=== PATIENT | male | born 1950 | race Caucasian/White ===

== ENCOUNTER 2019-12-26 15:17 | Outpatient (CLI) | payer MEDICARE, OTHER, SELFPAY ==
--- NOTE | ~2019-12-26 | US_ITS ---
US scrotum doppler INDICATION: Testicular swelling TECHNIQUE: Testicular sonogram utilizing grayscale and color Doppler FINDINGS: The testes are normal in size and appearance. No focal lesions are seen. The right testes measures 3.8 x 3 x 2.6 cm centimeters, and the left testis measures 4.3 x 2.7 x 2.5 cm cm. There is n ormal vascular flow to both testes. There are moderate bilateral hydroceles. There are bilateral varicoceles. IMPRESSION: 1. Bilateral varicoceles. 2: Moderate bilateral hydroceles. Reviewed, dictated and finalized at location A.
== END 2019-12-26 15:18 | disposition home or self-care (01) ==
PROVIDERS: PCP Internal Medicine; Visit Provider Internal Medicine
DX: R36.1 Hematospermia (principal); N43.3 Hydrocele, unspecified; I86.1 Scrotal varices; N50.89 Other specified disorders of the male genital organs
CPT/HCPCS: 76870; 93976

== ENCOUNTER 2020-04-11 10:59 | Outpatient (NON) | payer MEDICARE, OTHER, SELFPAY ==
[2020-04-12 20:05] LABS: SARS-CoV-2 RNA PCR Negative
== END 2020-04-11 11:00 ==
LOC: ANHCOVIDDT 11:03
PROVIDERS: Visit Provider Internal Medicine
DX: R68.89 Other general symptoms and signs (principal); Z20.828 Contact with and (suspected) exposure to other viral communicable diseases
CPT/HCPCS: 87635; C9803; U0003

== ENCOUNTER 2020-06-15 07:48 | Outpatient (CLI) | payer MEDICARE, OTHER, SELFPAY ==
--- NOTE | 2020-06-15 09:01 | ECG_ITS ---
Measurements Intervals Roby Rate: 45 P: 17 WA: 199 QRS: -10 QRSD: 103 T: 5 QT: 451 QTc: 392 Interpretive Statements SINUS BRADYCARDIA DELAYED PRECORDIAL R/S TRANSITION VOLTAGE CRITERIA FOR LVH BORDERLINE T WAVE ABNORMALITY- INFERIOR LEADS BASELINE ARTIFACT- I, II, III, AVR, AVL, AVF ABNORMAL ECG Electronically Signed On 06-15-2020 9:26:14 COMMUNITY SERVICES COORDINATOR by Hugo Mora D.O.
[2020-06-15 09:31] LABS: Basophils Absolute Auto 0.1 K/mm3 (0.0-0.1); Basophils Percent Auto 1.2 % (0.2-1.2); Eosinophils Absolute Auto 0.4 K/mm3 (0-0.3); Eosinophils Percent Auto 6.7 % (0-4.4); Hematocrit 45.1 % (42.0-52.0); Hemoglobin 14.8 g/dL (14.0-18.0); Immature Granulocyte Absolute 0.02 K/mm3 (0.00-0.031); Immature Granulocyte Percent A 0.4 % (0-0.5); Lymphocytes Absolute Auto 1.68 K/mm3 (0.9-3.2); Lymphocytes Percent Auto 29.7 % (18.3-44.2); Mean Corpuscular HGB Conc 32.8 g/dl (32-36); Mean Corpuscular Hemoglobin 28.2 pg (26-34); Mean Corpuscular Volume 85.9 fl (80-100); Mean Platelet Volume 10.2 fl (7.4-10.4); Monocytes Absolute Auto 0.4 K/mm3 (0.1-0.6); Monocytes Percent Auto 7.4 % (2.6-8.5); Neutrophils Absolute Auto 3.1 K/mm3 (1.3-6.7); Neutrophils Percent Auto 54.6 % (45.5-73.1); Platelet Count Result 164 k/mm3 (150-375); Red Blood Count 5.25 M/mm3 (4.6-6.20); Red Cell Distribution Width 13.2 % (11.5-14.5); White Blood Count 5.7 K/mm3 (4.5-10.0)
[2020-06-15 09:33] LABS: Add Urine Microscopic? NO; Appearance Urine Clear (Clear); Bilirubin Urine Negative (Negative); Blood Urine Negative (Negative); Color Urine Straw (Yellow); Glucose Urine UA Negative (Negative); Ketones Urine Negative (Negative); Leukocyte Esterase Ur Negative LEU/UL (Negative); Nitrate Urine Negative (Negative); Protein Urine Negative (Negative); Urobilinogen Urine Negative mg/dL (<2.0)
[2020-06-15 09:44] LABS: Albumin Level 3.9 g/dL (3.5-5.1); Anion Gap 7 mmol/L (8-16); Blood Urea Nitrogen 16 mg/dL (9-20); Calcium 8.9 mg/dL (8.4-10.2); Carbon Dioxide 29 mmol/L (22-30); Chloride 106 mmol/L (98-107); Estimated Glomerular Filt Rate > 60; Glucose 116 mg/dL (75-110); Potassium 3.8 mmol/L (3.4-5.0); Sodium 142 mmol/L (137-145)
[2020-06-15 09:45] LABS: Hemoglobin A1C 5.9 % (<5.7); Prothrombin Time 13.4 Seconds (11.1-14.7)
[2020-06-15 09:46] LABS: Partial Thromboplastin Time 26.4 SECONDS (22.3-36.8); Urine Cotinine NEGATIVE
== END 2020-06-15 07:49 | disposition home or self-care (01) ==
LOC: ANHSURGERY 07:50
PROVIDERS: Family Provider Internal Medicine; PCP Internal Medicine; Visit Provider Orthopaedic Surgery
DX: M17.12 Unilateral primary osteoarthritis, left knee (principal); Z01.818 Encounter for other preprocedural examination; R94.31 Abnormal electrocardiogram [ECG] [EKG]
CPT/HCPCS: 80048; 80307; 81003; 82040; 83036; 85025; 85610; 85730; 86850; 86900; 86901; 87081; 93005

== ENCOUNTER → 2020-06-23 05:55 | Outpatient (CLI) | payer MEDICARE, OTHER, SELFPAY ==
[2020-06-23 19:10] LABS: SARS-CoV-2 RNA PCR Negative
== END ==
PROVIDERS: Family Provider Internal Medicine; PCP Internal Medicine; Visit Provider Orthopaedic Surgery
DX: Z01.812 Encounter for preprocedural laboratory examination (principal); Z20.822 Contact with and (suspected) exposure to COVID-19
CPT/HCPCS: C9803; U0003; U0005

== ENCOUNTER 2020-06-27 01:09 | Day surgery (SDC) | payer MEDICARE, OTHER, SELFPAY ==
[2020-06-15 07:58] VITALS: BMI 35.2
[2020-06-15 08:52] VITALS: BP 169/83; PULSE 53; RESP 16; TEMP 37.2; O2SAT 99
--- NOTE | 2020-06-26 10:57 | WPDANESEPPF ---
Anes - Initial Pre Proc Eval Procedure: Operation Date: 06/27/20 10:30 Proposed Procedures p Left Total Knee Arthroplasty - Rashid Vincent MD Date/Time: 06/26/20 10:57 Surgeon: Rashid Vincent MD Pre Op Diagnosis: Left Knee DJD Patient Data Age: 69 Gender: M Height: 1.73 m Weight: 104.9 kg Last Vital Signs Temp 37.2 C 06/15/20 08:52 Pulse 53 L 06/15/20 08:52 Resp 16 06/15/20 08:52 BP 169/83 H 06/15/20 08:52 Pulse Ox 99 06/15/20 08:52 Allergies Allergy/AdvReac Type Severity Reaction Status Date / Time metaxalone Allergy Intermediate Nausea Verified 06/20/20 10:45 tramadol Allergy Intermediate Nausea Verified 06/20/20 10:45 Home Medications Medication Instructions Recorded Confirmed Type atorvastatin 20 mg tablet 20 mg PO DAILY 90 Days #90 tablet 11/16/19 06/27/20 Rx esomeprazole magnesium 40 mg 40 mg PO BID cap 11/16/19 06/27/20 History capsule,delayed release famotidine 40 mg tablet 40 mg PO HS tablet 11/16/19 06/27/20 History chlorhexidine gluconate 4 % 1 applic TOPICAL ONCE #237 ml 05/29/20 06/27/20 Rx topical liquid nebivolol [Bystolic] 10 mg PO QAM 06/15/20 06/27/20 History Patient hx anesthesia problems: none Family hx anesthesia problems: none PMFSH Past Medical History Medical History Whitt's esophagus with high grade dysplasia Chronic left shoulder pain Chronic pain of left knee Decreased mobility Hematospermia Hypertensive heart disease without heart failure (06/22/18) Joint locking Left knee DJD Mixed hyperlipidemia Muscle spasm Obstructive sleep apnea Primary osteoarthritis of left knee Swelling Surgical History Surgical History H/O knee surgery Family History Family History Father Family history of lung cancer Mother Family history of malignant neoplasm of breast in first degree relative Other Family history of malignant neoplasm of male breast Social History Social History Smoking packs per day: 1 Smoking cigarettes per day: 20.0 Years smoked: 4 Smoking pack-years: 4.00 Smoking status: Former smoker Tobacco type: cigarettes Smoking end date: 05/04/75 Additional smoking assessment comments: DENIES ANY FORM OF TOBACCO USE Alcohol intake: never Living arrangements: with family Spiritual care concerns: No Anes - Eval Final PreProcedure Day of Procedure 06/26/20 10:57 Patient weight: obese Heart: regular rate and rhythm Lungs: clear to auscultation and normal air movement Airway: Mallampati scale class II Neurological: alert and oriented Last oral intake: >/= 8 hours ASA classification: III Emergent: no Anesthetic plan: proceed Anesthesia type and monitoring: general LMA Informed Consent: The patient's anesthetic plan and its attendant risks and benefits were discussed with the patient/family/POA. Questions were solicited and answers provided to the satisfaction of the patient/family/POA.
--- NOTE | 2020-06-26 10:58 | WPDANESPNB ---
Anes - Peripheral Nerve Block Date/Time: 06/26/20 10:58 I have discussed with the patient/family/POA the placement of a peripheral nerve block for post-operative pain management, including associated risks, benefits, complications, and side effects. Alternative methods of post-operative analgesia were detailed. Questions were solicited and answers provided to the satisfaction of the patient/family/POA. Time-Out: A pre-procedural Time-Out was completed immediately before starting the procedure and confirmed: Patient Identification, Site, Procedure, Patient Position and the Availability of Requisite Equipment. Clinical Indications: Acute post-operative pain management requested by the operative surgeon. Nerve Block Insertion Note Anes-nerve block: adductor canal left Patient position: supine Skin prep: chlorhexidine Needle: 22 gauge, stimulating, insulated echogenic needle. Needle length: 80 mm Technique: ultrasound Injectate: bupivacaine 0.5% with epi 5 mcg/ml (30cc - no epi) Observations: tolerated well Complications: none Procedure start time:: 1052 Procedure end time:: 105
[2020-06-27] VITALS (11 sets, daily range): BP systolic 120–175; BP diastolic 61–101; PULSE 51–80; RESP 10–20; TEMP 35.8–37.1; O2SAT 92–100
--- NOTE | ~2020-06-27 | XR_ITS ---
. EXAMINATION: XR knee LT 2V DATE: 06/27/2020 14:16 INDICATION: Postoperative evaluation following left total knee arthroplasty. TECHNIQUE: Anteroposterior and lateral views of the left knee were obtained. COMPARISON: None. FINDINGS: Left total knee arthroplasty without patellar resurfacing appears well seated and in near anatomic al ignment. No fractures identified. Skin samm and expected postoperative subcutaneous, intramedull unique and intra-articular gas. IMPRESSION: 1. Left total knee arthroplasty, negative for postoperative purposes. Reviewed, dictated and finalized at location A. SANITARIAN
--- NOTE | 2020-06-27 07:24 | WPDHPUPDATE1 ---
History and Physical Update Update Date/Time: 06/27/20 07:24 History and Physical has been reviewed, including an updated exam of the patient. There are NO changes in the patient's condition. Risks, benefits, and alternatives have been discussed and questions answered. Patient agrees to proceed with procedure.
[2020-06-27] MEDS: ACETAMINOPHEN 500 MG TABLET 1000 MG PO (08:58)
[2020-06-27] MEDS: LACTATED RINGERS 1,000 ML 30 ML IV CONT ×2 (09:23→14:01)
[2020-06-27] MEDS: TRANEXAMIC ACID 1,000MG/ISO100 1,000 MG/100 ML BAG 200 MG IVPB (09:57)
[2020-06-27] MEDS: ceFAZolin 2 GM/D5W 50 ML 2 GM/50 ML BAG IVPB ×2 (11:10→18:15)
[2020-06-27] MEDS: GENTAMICIN BONE CEMENT REFOBACIN 1 EACH TOPICAL (12:45)
--- NOTE | 2020-06-27 14:03 | PM.PROC ---
Procedure Note - Detailed Date of procedure: 06/27/20 Pre-op diagnosis: Left Knee DJD Post-op diagnosis: same Procedure performed: L TKA Description of procedure: THE LEFT KNEE WAS PREPPED AND DRAPED IN THE STERILE FASHION. A MIDLINE SKIN INCISION WAS MADE. A MEDIAL PARAPATELLAR ARTHROTOMY WAS MADE. THE PATELLA WAS EVERTED. THERE WAS TRICOMPARTMENT DJD. THERE WAS MINIMAL PATELLA DJD. AN INTRAMEDULLARY REILLY WAS PLACED IN THE FEMUR. A DISTAL FEMORAL CUT WAS MADE IN 5 DEGREES OF VALGUS REMOVING APPROXIMATELY 9 MM OF BONE FROM THE DISTAL FEMUR. THE FEMUR WAS SIZED TO 67.7. A 67.5 FEMORAL CUTTING BLOCK WAS PLACED IN 3 DEGREES OF EXTERNAL ROTATION AND IN ALIGNMENT WITH TOMA'S LINE AND THE TRANSEPICONDYLAR AXIS. ANTERIOR POSTERIOR AND CHAMFER CUTS WERE MADE. THE CUTS WERE EXCELLENT. NEXT AN INTRAMEDULLARY CUTTING GUIDE WAS PLACED IN THE TIBIA. A TRANS TIBIAL CUT WAS MADE ALONG THE LONG AXIS OF THE TIBIA. APPROXIMATELY 10 MM OF BONE WAS REMOVED FROM THE HIGH SIDE OF THE TIBIA. THE TIBIA WAS THEN PLANED TO A SMOOTH SURFACE. POSTERIOR FEMORAL OSTEOPHYTES WERE REMOVED FROM THE FEMORAL CONDYLES. A 79 TIBIAL TRIAL WAS PLACED IN ALIGNMENT WITH THE 1/3 MEDIAL ASPECT OF THE TIBIAL TUBERCLE. THEN A 67.5 FEMORAL TRIAL COMPONENT WAS PLACED. BOTH HAD EXCELLENT FITS. EVENTUALLY A 10 MM POLYETHYLENE TRIAL COMPONENT WAS PLACED. THE KNEE WAS TAKEN THROUGH A RANGE OF MOTION. THE KNEE CAME OUT TO FULL EXTENSION. THERE WAS NO ABNORMAL TILT TO THE PATELLA. THERE WAS GOOD A/P AND VARUS/VALGUS STABILITY. THERE WAS NO EXCESSIVE ROLL BACK WITH FLEXION. THE TRIAL COMPONENTS WERE REMOVED. THEN A 67.5 FEMORAL COMPONENT AND 79 TIBIAL COMPONENT WITH A 10 CR POLYETHYLENE COMPONENT WERE CEMENTED INTO PLACE. ONCE THE CEMENT WAS HARD THE KNEE WAS TAKEN THROUGH A ROM AGAIN AND FOUND TO BE STABLE WITH NO PATELLA TILT NO EXCESSIVE ROLL BACK WITH FLEXION AND GOOD STABILITY WITH COMPLETE AND FULL EXTENSION. THE KNEE WAS IRRIGATED WITH STERILE BETADINE AND WATER FOR ABOUT 3 MINUTES. THE BLEEDERS WERE CAUTERIZED. THE ARTHROTOMY WAS REPAIRED WITH NUMBER 1 VICRYL. THE SUB CUTANEOUS LAYER WITH 2-0 VICRYL AND THE SKIN WITH FADUMO. THE WOUND WAS WASHED AND A STERILE DRESSING WAS APPLIED. PATIENT WAS EXTUBATED. Anesthesia: GETA Surgeon: Rashid Vincent MD Estimated blood loss (mL): 100 Complications: No immediate complications Condition: stable Disposition: PACU
[2020-06-27] MEDS: fentaNYL CITRATE INJ (*CRX) 100 MCG/2 ML VIAL 25 MCG IV PUSH ×4 (14:21→14:51)
--- NOTE | 2020-06-27 15:05 | SUR.PHASEI ---
[id number] sbar faxed floor notified
--- NOTE | 2020-06-27 16:26 | ADMGEN ---
This patient, Miguelito Rosales, was admitted to Medical Room 245-. Patient/family oriented to hospital policies and general routines including ID bracelet, bed and alarms, visiting hours, pain management, procedures, bathroom and other care routines, personal items, smoking policy, room service/diet, and visiting hours. Information on how to activate the Rapid Response Team has been discussed. Patient/Family are encouraged to report perceived risks to care and to ask questions if they do not understand what they are told or what they should do.
[2020-06-27] MEDS: CELECOXIB 200 MG CAPSULE PO (18:15)
[2020-06-27] MEDS: DOCUSATE SODIUM 100 MG CAPSULE PO (18:15)
[2020-06-27] MEDS: PANTOPRAZOLE 40 MG TABLET PO (18:15)
[2020-06-27] MEDS: FAMOTIDINE 20 MG TABLET 40 MG PO (21:24)
[2020-06-27] MEDS: oxyCODONE/ACETAMINOPHEN (*CRX) 5-325 MG TABLET 1 TABLET PO (21:24)
[2020-06-28 01:08] VITALS: BP 126/61; PULSE 70; RESP 16; TEMP 36.8; O2SAT 95
[2020-06-28] MEDS: ceFAZolin 2 GM/D5W 50 ML 2 GM/50 ML BAG IVPB ×2 (03:31→11:18)
[2020-06-28 05:03] VITALS: BP 123/74; PULSE 57; RESP 16; TEMP 36.6; O2SAT 97
[2020-06-28 05:26] LABS: Basophils Percent Auto 0.2 % (0.2-1.2); Eosinophils Percent Auto 0.1 % (0-4.4); Hematocrit 36.5 % (42.0-52.0); Hemoglobin 12.1 g/dL (14.0-18.0); Immature Granulocyte Absolute 0.04 K/mm3 (0.00-0.031); Immature Granulocyte Percent A 0.4 % (0-0.5); Lymphocytes Percent Auto 16.6 % (18.3-44.2); Mean Corpuscular HGB Conc 33.2 g/dl (32-36); Mean Corpuscular Hemoglobin 28.5 pg (26-34); Mean Corpuscular Volume 85.9 fl (80-100); Mean Platelet Volume 10.3 fl (7.4-10.4); Monocytes Absolute Auto 0.9 K/mm3 (0.1-0.6); Neutrophils Absolute Auto 8.1 K/mm3 (1.3-6.7); Neutrophils Percent Auto 74.7 % (45.5-73.1); Platelet Count Result 147 k/mm3 (150-375); Red Blood Count 4.25 M/mm3 (4.6-6.20); Red Cell Distribution Width 13.4 % (11.5-14.5); White Blood Count 10.8 K/mm3 (4.5-10.0)
[2020-06-28 05:47] LABS: Anion Gap 5 mmol/L (8-16); Blood Urea Nitrogen 20 mg/dL (9-20); Calcium 7.9 mg/dL (8.4-10.2); Carbon Dioxide 28 mmol/L (22-30); Chloride 106 mmol/L (98-107); Estimated CRCL calculation 71 ml/min; Estimated Glomerular Filt Rate > 60; Glucose 121 mg/dL (75-110); Potassium 3.8 mmol/L (3.4-5.0); Sodium 139 mmol/L (137-145)
[2020-06-28] MEDS: DOCUSATE SODIUM 100 MG CAPSULE PO (08:15)
[2020-06-28 08:16] VITALS: PULSE 62
[2020-06-28] MEDS: PANTOPRAZOLE 40 MG TABLET PO (08:16)
[2020-06-28] MEDS: ASPIRIN 325 MG ENTERIC TABLET 650 MG PO (08:16)
[2020-06-28] MEDS: ATORVASTATIN 20 MG TABLET PO (08:16)
[2020-06-28] MEDS: NEBIVOLOL HCL 5 MG TABLET 10 MG PO (08:16)
[2020-06-28] MEDS: CELECOXIB 200 MG CAPSULE PO (08:17)
[2020-06-28 08:23] VITALS: BP 134/69; PULSE 62; RESP 18; TEMP 36.2; O2SAT 98
--- NOTE | 2020-06-28 08:57 | PM.PNORT ---
Progress Note: A&P Assessment and Plan (1) S/P total knee replacement: Qualifiers: Laterality: left Qualified Code(s): Z96.652 - Presence of left artificial knee joint Code(s): Z96.659 - Presence of unspecified artificial knee joint Status: Acute Assessment and Plan: POD #1: Left TKA Continue PT/OT. WBAT LLE. Walker. Ice left knee. SCDs. Incentive spriometry. Educate patient on ice machine use. Dressing to be changed prior to discharge. Continue pain control. Bowel regimen. Aspirin for DVT prophylaxis. Dispo: Home with Home Health today Subjective Subjective Date/Time Seen: 06/28/20 08:57 Post Op day: 1 Principal diagnosis: Left Knee DJD Interval history: Left TKA POD #1 No new complaints. Working well with PT/OT. Ready for discharge home. Review of Systems Review of Systems: All systems reviewed & are unremarkable except as noted in HPI and below Constitutional: Constitutional: Denies fever(s) and Denies headache(s) ENT: Denies headache(s) Cardiovascular: Cardiovascular: Denies chest pain, Denies diaphoresis, Denies palpitations and Denies dyspnea Respiratory: Respiratory: Denies dyspnea Gastrointestinal: Gastrointestinal: Denies abdominal pain, Denies constipation, Denies nausea and Denies vomiting Genitourinary: Genitourinary: Denies dysuria and Reports nocturia Musculoskeletal: Musculoskeletal: Reports arthralgias (Left Knee ), Reports joint swelling (Left Knee ) and Reports limited range of motion (ROM limited due to recent surgical intervention LEFT Knee ) Neurologic: Denies headache(s) Endocrine: Endocrine: Denies palpitations Exam Const: General: comfortable and no acute distress Resp: Effort & Inspection: normal respiratory effort Cardio: Rate: regular rate Rhythm: regular rhythm GI: GI Palp: Yes Soft to palpation, No Tenderness to palpation present (GI) and No Guarding due to palpation present (GI) Skin: Wounds: wounds noted Other: Incision c/d/i. No surrounding redness/warmth. No hematoma. Mild ecchymosis. No wound dehiscence Neuro: Cognition (Neuro): normal cognition Other: NV intact aside from block. Moves toes. Sensation intact to light touch. +ankle dorsiflexion/plantarflexion. Extrem: Right upper extremity: normal to inspection, full ROM and normal capillary refill Left upper extremity: normal to inspection, full ROM and normal capillary refill Right lower extremity: normal to inspection, full ROM (ROM limited due to recent surgical intervention ) and knee (previous right TKA incision well-healed ) Details: normal ROM; no tenderness and no swelling Left lower extremity: normal to inspection, normal capillary refill and knee Details: tenderness (diffuse ), swelling (moderate consistent to recent surgery ), abnormal ROM (limited due to recent surgery ) and ecchymosis (as expected with recent surgery. NO hematoma. ) Other: Incision left TKA dressing c/d/i. No hematoma. No signs of infection. No wound dehiscence. Psych: Mental Status: mental status grossly normal Objective Data Vital Signs Vital Signs: Vital Signs - 24 hr 06/27/20 09:28 06/27/20 14:05 06/27/20 14:20 Temperature 36.6 C 36.5 C Pulse Rate 51 L 80 60 Respiratory Rate 20 18 10 L Blood Pressure 164/85 H 151/101 H 170/87 H Pulse Oximetry 99 96 100 06/27/20 14:35 06/27/20 14:50 06/27/20 15:05 Temperature Pulse Rate 72 70 68 Respiratory Rate 16 15 10 L Blood Pressure 175/74 H 148/61 H 144/84 H Pulse Oximetry 94 95 06/27/20 15:38 06/27/20 16:00 06/27/20 16:25 Temperature 36.3 C L 36.0 C L 35.8 C L Pulse Rate 63 61 65 Respiratory Rate 16 18 16 Blood Pressure 167/79 H 153/90 H 152/87 H Pulse Oximetry 97 95 92 06/27/20 18:00 06/27/20 21:08 06/28/20 01:08 Temperature 36.6 C 37.1 C 36.8 C Pulse Rate 69 77 70 Respiratory Rate 16 16 16 Blood Pressure 120/87 169/93 H 126/61 Pulse Oximetry 96 94 95 06/28/20 05:03 06/28/20 08:16 06/28/20 08:23 Temp
--- NOTE | 2020-06-28 10:29 | PM.DS ---
DS: Admitting Diagnosis Admitting Diagnosis Admitting Diagnosis: Left Knee DJD DS: Discharge Diagnosis Discharge Diagnosis (1) S/P total knee replacement: Qualifiers: Laterality: left Qualified Code(s): Z96.652 - Presence of left artificial knee joint Code(s): Z96.659 - Presence of unspecified artificial knee joint Status: Acute Assessment and Plan: POD #1: Left TKA Continue PT/OT. WBAT LLE. Walker. Ice left knee. SCDs. Incentive spriometry. Educate patient on ice machine use. Dressing to be changed prior to discharge. Continue pain control. Bowel regimen. Aspirin for DVT prophylaxis. Dispo: Home with Home Health today DS: Summary Hospital Course Reason for hospitalization: Left TKA Hospital Course: 69-year-old male admitted status post left total knee replacement. Patient underwent a left total knee replacement on 06/[address] Vincent. he was admitted for postoperative medical management, pain control and PT/ OT. He has progressed well with PT and OT and is able to complete tasks that he will need to be discharged home safely. His labs and vitals have remained stable. He has been cleared physical therapy and occupational therapy standpoint to be discharged home with home health. He will follow up in the outpatient clinic in 3 weeks. Status at Discharge Functional status at discharge: uses cane/walker Overall status at discharge: patient is progressing back to baseline Time Spent with Patient Time attestation: Total time spent providing and/or coordinating discharge services: Exam Const: General: comfortable and no acute distress Resp: Effort & Inspection: normal respiratory effort Cardio: Rate: regular rate Rhythm: regular rhythm Skin: Wounds: wounds noted Other: Incision c/d/i. No surrounding redness/warmth. No hematoma. Mild ecchymosis. No wound dehiscence Neuro: Cognition (Neuro): normal cognition Other: NV intact aside from block. Moves toes. Sensation intact to light touch. +ankle dorsiflexion/plantarflexion. Extrem: Right upper extremity: normal to inspection, full ROM and normal capillary refill Left upper extremity: normal to inspection, full ROM and normal capillary refill Right lower extremity: normal to inspection, full ROM (ROM limited due to recent surgical intervention ) and knee (previous right TKA incision well-healed ) Details: normal ROM; no tenderness and no swelling Left lower extremity: normal to inspection, normal capillary refill and knee Details: tenderness (diffuse ), swelling (moderate consistent to recent surgery ), abnormal ROM (limited due to recent surgery ) and ecchymosis (as expected with recent surgery. NO hematoma. ) Other: Incision left TKA dressing c/d/i. No hematoma. No signs of infection. No wound dehiscence. Psych: Mental Status: mental status grossly normal DS: Data Data Completed and Pending Labs on day of discharge: Labs from last 24 hours 06/28/20 06/28/20 05:02 05:02 WBC 10.8 H RBC 4.25 L Hgb 12.1 L Hct 36.5 L MCV 85.9 MCH 28.5 MCHC 33.2 RDW 13.4 Plt Count 147 L MPV 10.3 Immature Gran % (Auto) 0.4 Neut % (Auto) 74.7 H Lymph % (Auto) 16.6 L [place] % (Auto) 8.0 Eos % (Auto) 0.1 Baso % (Auto) 0.2 Lymph # (Auto) 1.80 [place] # (Auto) 0.9 H Eos # (Auto) 0.0 Baso # (Auto) 0.0 Abs Immat Gran (auto) 0.04 H Absolute Neuts (auto) 8.1 H Absolute Nucleated RBC 0.0 Nucleated RBC % 0.0 Sodium 139 Potassium 3.8 Chloride 106 Carbon Dioxide 28 Anion Gap 5 L BUN 20 Creatinine 1.00 Estim Creat Clear Calc 71 Estimated GFR > 60 Glucose 121 H Calcium 7.9 L Discharge Plan Discharge Patient Disposition: Home Health Service Discharge Instructions: Dr. Rashid Vincent [phone] Orthopedic Discharge Instructions: Your dressing will be changed today prior to your discharge. You will be sent with one additional dressing to be changed by the home h
[2020-06-28 12:00] VITALS: BP 150/84; PULSE 57; RESP 18; TEMP 36.3; O2SAT 99
--- NOTE | 2020-06-28 12:04 | P.PNAN_ITS ---
Anes - Prog Note Post-Op Date/Time: 06/28/20 12:04 Cardiovascular status: normal Respiratory status: normal Airway patency: baseline Mental status: baseline Post-Op hydration status: normal Vital Signs: Last Vital Signs Temp 36.2 C L 06/28/20 08:23 Pulse 62 06/28/20 08:23 Resp 18 06/28/20 08:23 BP 134/69 06/28/20 08:23 Pulse Ox 98 06/28/20 08:23 Pain Score (VAS): 0/10. Patient resting up to bedside chair at time of assessment, appears comfortable. I/O: Intake & Output 06/27/20 06/28/20 06/28/20 23:59 07:59 15:59 Intake Total 250 350 200 Output Total 600 Balance 250 -250 200 Laboratory Tests 06/28/20 05:02 06/28/20 05:02 06/28/20 06/28/20 05:02 05:02 WBC 10.8 H RBC 4.25 L Hgb 12.1 L Hct 36.5 L MCV 85.9 MCH 28.5 MCHC 33.2 RDW 13.4 Plt Count 147 L MPV 10.3 Immature Gran % (Auto) 0.4 Neut % (Auto) 74.7 H Lymph % (Auto) 16.6 L [place] % (Auto) 8.0 Eos % (Auto) 0.1 Baso % (Auto) 0.2 Lymph # (Auto) 1.80 [place] # (Auto) 0.9 H Eos # (Auto) 0.0 Baso # (Auto) 0.0 Abs Immat Gran (auto) 0.04 H Absolute Neuts (auto) 8.1 H Absolute Nucleated RBC 0.0 Nucleated RBC % 0.0 Sodium 139 Potassium 3.8 Chloride 106 Carbon Dioxide 28 Anion Gap 5 L BUN 20 Creatinine 1.00 Estim Creat Clear Calc 71 Estimated GFR > 60 Glucose 121 H Calcium 7.9 L Post-procedural complaints: none Patient Feedback: Patient satisfied with anesthetic care.
--- NOTE | 2020-06-28 14:20 | PC.NURSE ---
On 06/28/20, the student, [Shayla Alegria ], provided care and completed [facility] documentation on this patient. I have reviewed the student's documentation and agree with the findings.
--- NOTE | 2020-06-28 14:21 | PC.NURSE ---
On 06/28/20, the student, [ Danita Jensen], provided care and completed [facility] documentation on this patient. I have reviewed the student's documentation and agree with the findings.
== END 2020-06-28 13:25 | disposition home health service (06) ==
LOC: ANHSURGERY 08:29 → ANH2MED 15:25
PROVIDERS: Family Provider Internal Medicine; PCP Internal Medicine; Visit Provider Orthopaedic Surgery
PROC: (CPT 27447; principal; 2020-06-27 10:30)
DX: M17.12 Unilateral primary osteoarthritis, left knee (principal); K22.70 Barrett's esophagus without dysplasia; R36.1 Hematospermia; E78.2 Mixed hyperlipidemia; I11.9 Hypertensive heart disease without heart failure; G47.33 Obstructive sleep apnea (adult) (pediatric); Z87.891 Personal history of nicotine dependence; E66.9 Obesity, unspecified; Z68.35 Body mass index [BMI] 35.0-35.9, adult; G89.18 Other acute postprocedural pain
CPT/HCPCS: 64447; 27447; 36415; 73560; 80048; 80307; 81003; 82040; 83036; 85025; 85610; 85730; 86850; 86900; 86901; 87081; 93005; 97110; 97116; 97161; 97165; 97530; 97535; A9270; C1713; C1776; C9803; J0171; J0690; J1100; J1170; J2250; J2270; J2405; J2704; J2795; J3010; J7120; U0003; U0005